=== PATIENT | male | born 1980 | race Caucasian/White ===

== ENCOUNTER → 2016-11-01 | Outpatient (CLI) | payer BC, OTHER ==
[2016-11-01 19:02] LABS: VITAMIN B12 LEVEL 328 PG/ML (247-911)
[2016-11-01 19:19] LABS: ALBUMIN 3.9 GM/DL (3.2-5.2); ALBUMIN/GLOBULIN RATIO 1.34 (1.00-1.93); ALKALINE PHOSPHATASE 88 U/L (45-117); ALT/SGPT 21 U/L (12-78); ANION GAP 5 MEQ/L (8-16); AST/SGOT 10 U/L (15-37); BILIRUBIN,TOTAL 1.2 MG/DL (0.2-1.0); BLOOD UREA NITROGEN 15 MG/DL (7-18); CARBON DIOXIDE LEVEL 31 MEQ/L (21-32); CHLORIDE LEVEL 104 MEQ/L (98-107); CHOLESTEROL LEVEL 166 MG/DL (<200); CREATININE FOR GFR 1.12 MG/DL (0.70-1.30); GLOMERULAR FILTRATION RATE > 60.0 (>60); GLUCOSE, FASTING 91 MG/DL (70-105); POTASSIUM SERUM 4.7 MEQ/L (3.5-5.1); SODIUM LEVEL 140 MEQ/L (136-145); TOTAL PROTEIN 6.8 GM/DL (6.4-8.2); TRIGLYCERIDES LEVEL 129 MG/DL (<150)
== END ==
LOC: M WUC 13:44
PROVIDERS: ATTEND Family Medicine
DX: E78.5 Hyperlipidemia, unspecified (principal); F41.1 Generalized anxiety disorder

== ENCOUNTER → 2016-12-21 | Outpatient (CLI) | payer BC, OTHER ==
--- NOTE | 2016-12-21 12:10 | REP ---
Right TIB-fib series: Four views. History: Pain in the right knee. Basketball injury. Findings: Four views of the right TIB-fib demonstrate plantar and Achilles calcaneal spurring. There is some ankle joint spurring. Old fragmented spurring is seen at the anterior tibial apophysis, question prior Conroy-Schlatter's. There is no evidence of acute tibial fracture or periosteal reaction. Impression: Ankle spurring, heel spurring, and question old Conroy-Schlatter's. No acute bony abnormality. Signed by Rashaun Ryaa MD 12/21/2016 02:46 P
== END ==
LOC: M RAD 10:46
PROVIDERS: ATTEND Physician Assistant
DX: M25.561 Pain in right knee (principal)

== ENCOUNTER 2017-09-18 03:16 | Inpatient (IN) | payer BC, OTHER ==
[2017-09-18] MEDS: MORPHINE 4 MG/ML 1ML VIAL/SYRINGE (J2270) IV ×2 (03:59→04:19)
[2017-09-18] MEDS: ONDANSETRON 4MG/2ML VIAL (J2405) IV (04:00)
[2017-09-18] MEDS: NS 1,000 ML IV ×3 (04:01→07:47)
[2017-09-18 04:19] LABS: BASO % 0.3 % (0.0-1.0); EOS % 0.6 % (0.0-3.0); HEMATOCRIT 42.9 % (42.0-52.0); HEMOGLOBIN 14.5 g/dl (13.5-17.5); IMMATURE GRANULOCYTE % 0.2 % (0-3.0); LYMPH # 2.6 10^3/uL (1.5-4.5); LYMPH % 41.9 % (24.0-44.0); MEAN CORPUSCULAR HEMOGLOBIN 29.5 pg (27.0-33.0); MEAN CORPUSCULAR HGB CONC 33.8 g/dl (32.0-36.5); MEAN CORPUSCULAR VOLUME 87.4 fl (80.0-96.0); MONO # 0.4 10^3/uL (0.0-0.8); MONO % 5.6 % (0.0-5.0); NEUTROPHILS # 3.2 10^3/uL (1.8-7.7); NEUTROPHILS % 51.4 % (36.0-66.0); PLATELET COUNT, AUTOMATED 222 10^3/uL (150-450); RED BLOOD COUNT 4.91 10^6/uL (4.30-6.10); RED CELL DISTRIBUTION WIDTH 12.6 % (11.5-14.5); WHITE BLOOD COUNT 6.3 10^3/uL (4.0-10.0)
[2017-09-18 04:31] LABS: ALBUMIN 3.9 GM/DL (3.2-5.2); ALKALINE PHOSPHATASE 70 U/L (45-117); ALT/SGPT 16 U/L (12-78); ANION GAP 6 MEQ/L (8-16); AST/SGOT 10 U/L (7-37); BILIRUBIN,DIRECT 0.2 MG/DL (0.0-0.2); BILIRUBIN,TOTAL 0.9 MG/DL (0.2-1.0); BLOOD UREA NITROGEN 23 MG/DL (7-18); CALCIUM LEVEL 8.7 MG/DL (8.5-10.1); CARBON DIOXIDE LEVEL 29 MEQ/L (21-32); CHLORIDE LEVEL 106 MEQ/L (98-107); CREATININE FOR GFR 1.22 MG/DL (0.70-1.30); GLOMERULAR FILTRATION RATE > 60.0 (>60); GLUCOSE, FASTING 99 MG/DL (70-100); LIPASE 111 U/L (73-393); POTASSIUM SERUM 3.8 MEQ/L (3.5-5.1); SODIUM LEVEL 141 MEQ/L (136-145); TOTAL PROTEIN 6.9 GM/DL (6.4-8.2)
[2017-09-18 04:32] LABS: LACTIC ACID SEPSIS PROTOCOL 1.9 MMOL/L (0.4-2.0)
[2017-09-18] MEDS: GASTROGRAFIN SOLUTION 30ML (Q9963) PO ×10 (04:40→06:40)
[2017-09-18] MEDS: fentaNYL 100 MCG/2 ML INJECTION (J3010) IV ×4 (05:47→11:20)
[2017-09-18] MEDS ORDERED: ISOVUE-370 76% 100ML VIAL (Q9967) As Ordered (05:49)
[2017-09-18] MEDS: PIPERACILLIN/TAZOBACTAM SOD 3.375 GM in D5W MINI-BAG PLUS 50 ML IV ×4 (06:39→23:44)
[2017-09-18] MEDS: LR 1,000 ML IV ×4 (07:39→18:54)
[2017-09-18] MEDS ORDERED: MORPHINE 4 MG/ML 1ML VIAL/SYRINGE (J2270) IV (07:45)
[2017-09-18] MEDS ORDERED: PANTOPRAZOLE 40MG INJ (PROTONIX) (C9113) IV (09:00)
[2017-09-18] MEDS ORDERED: GLYCOPYRROLATE INJ 0.2 MG/ML 2 ML VIAL As Ordered (14:06)
[2017-09-18] MEDS ORDERED: ROCURONIUM BROMIDE 50 MG/5 ML VIAL As Ordered ×2 (14:06→14:09)
[2017-09-18] MEDS ORDERED: METOCLOPRAMIDE INJ 10MG/2ML VIAL (J2765) As Ordered (14:06)
[2017-09-18] MEDS ORDERED: dexameTHASONE 4 MG/ML 1ML VIAL (J1100) As Ordered (14:06)
[2017-09-18] MEDS ORDERED: fentaNYL 250 MCG/5 ML INJECTION (J3010) As Ordered (14:06)
[2017-09-18] MEDS ORDERED: PROPOFOL 200 MG/20 ML VIAL As Ordered (14:06)
[2017-09-18] MEDS ORDERED: MIDAZOLAM INJ 2 MG/2 ML VIAL (J2250) As Ordered (14:06)
[2017-09-18] MEDS ORDERED: PHENYLEPHRINE INJ 10MG/ML VIAL (J2370) As Ordered (14:06)
[2017-09-18] MEDS ORDERED: ONDANSETRON 4MG/2ML VIAL (J2405) As Ordered (14:06)
[2017-09-18] MEDS ORDERED: NEOSTIGMINE 10 MG/10 ML VIAL (J2710) As Ordered (14:06)
[2017-09-18] MEDS ORDERED: LIDOCAINE 2% INJ 100 MG/5 ML SDV (FOR ANES.) As Ordered (14:06)
[2017-09-18] MEDS ORDERED: PHENYLephrine HCL 500 MCG/5 ML (100MCG/ML) SYRINGE (J2370) As Ordered (14:07)
[2017-09-18] MEDS: BUPIVACAINE HCL 0.25% 30 ML VIAL As Ordered (16:03)
[2017-09-18] MEDS ORDERED: PERCOCET 5MG/325MG TAB PO (16:45)
[2017-09-18] MEDS ORDERED: fentaNYL 100 MCG/2 ML INJECTION (J3010) IV (16:45)
[2017-09-18] MEDS ORDERED: ONDANSETRON 4MG/2ML VIAL (J2405) IV (16:45)
[2017-09-18] MEDS: PANTOPRAZOLE 40MG INJ (PROTONIX) (C9113) IV (20:23)
[2017-09-18] MEDS: KETOROLAC 30 MG/ML VIAL (J1885) IV (20:23)
[2017-09-18] MEDS: ACETAMINOPHEN TAB 650MG DOSE (2X325MG) PO (21:55)
[2017-09-19] MEDS: LR 1,000 ML IV ×3 (05:05→22:47)
[2017-09-19] MEDS: PIPERACILLIN/TAZOBACTAM SOD 3.375 GM in D5W MINI-BAG PLUS 50 ML IV ×3 (05:39→17:56)
[2017-09-19] MEDS: KETOROLAC 30 MG/ML VIAL (J1885) IV ×3 (05:39→17:56)
[2017-09-19 06:34] LABS: BASO % 0.1 % (0.0-1.0); HEMATOCRIT 34.5 % (42.0-52.0); IMMATURE GRANULOCYTE % 0.5 % (0-3.0); LYMPH # 0.7 10^3/uL (1.5-4.5); MEAN CORPUSCULAR HEMOGLOBIN 29.9 pg (27.0-33.0); MEAN CORPUSCULAR HGB CONC 33.9 g/dl (32.0-36.5); MEAN CORPUSCULAR VOLUME 88.2 fl (80.0-96.0); MONO # 0.5 10^3/uL (0.0-0.8); MONO % 6.6 % (0.0-5.0); NEUTROPHILS # 6.8 10^3/uL (1.8-7.7); NEUTROPHILS % 83.8 % (36.0-66.0); PLATELET COUNT, AUTOMATED 158 10^3/uL (150-450); RED BLOOD COUNT 3.91 10^6/uL (4.30-6.10); RED CELL DISTRIBUTION WIDTH 13.2 % (11.5-14.5); WHITE BLOOD COUNT 8.1 10^3/uL (4.0-10.0)
[2017-09-19 07:14] LABS: HEMOGLOBIN 11.7 g/dl (13.5-17.5)
[2017-09-19 07:19] LABS: ALBUMIN 2.6 GM/DL (3.2-5.2); ALKALINE PHOSPHATASE 41 U/L (45-117); ALT/SGPT 15 U/L (12-78); ANION GAP 4 MEQ/L (8-16); AST/SGOT 12 U/L (7-37); BILIRUBIN,TOTAL 1.7 MG/DL (0.2-1.0); BLOOD UREA NITROGEN 20 MG/DL (7-18); CALCIUM LEVEL 8.5 MG/DL (8.5-10.1); CARBON DIOXIDE LEVEL 30 MEQ/L (21-32); CHLORIDE LEVEL 108 MEQ/L (98-107); CREATININE FOR GFR 1.26 MG/DL (0.70-1.30); GLOMERULAR FILTRATION RATE > 60.0 (>60); GLUCOSE, FASTING 108 MG/DL (70-100); POTASSIUM SERUM 4.3 MEQ/L (3.5-5.1); SODIUM LEVEL 142 MEQ/L (136-145); TOTAL PROTEIN 5.5 GM/DL (6.4-8.2)
[2017-09-19] MEDS: PANTOPRAZOLE 40MG INJ (PROTONIX) (C9113) IV ×2 (08:08→20:23)
[2017-09-19] MEDS: ACETAMINOPHEN TAB 650MG DOSE (2X325MG) PO ×2 (08:15→20:23)
[2017-09-19] MEDS: SUCRALFATE SUSP 1GM/10ML UD PO ×2 (11:54→17:56)
[2017-09-19] MEDS: ENOXAPARIN 40 MG/0.4 ML SYRINGE (J1650) SC (11:55)
[2017-09-20] MEDS: SUCRALFATE SUSP 1GM/10ML UD PO ×4 (00:06→17:33)
[2017-09-20] MEDS: PIPERACILLIN/TAZOBACTAM SOD 3.375 GM in D5W MINI-BAG PLUS 50 ML IV ×4 (00:06→17:33)
[2017-09-20] MEDS: KETOROLAC 30 MG/ML VIAL (J1885) IV ×4 (00:07→21:21)
[2017-09-20] MEDS: PANTOPRAZOLE 40MG INJ (PROTONIX) (C9113) IV ×2 (09:08→20:18)
[2017-09-20] MEDS: ENOXAPARIN 40 MG/0.4 ML SYRINGE (J1650) SC (09:08)
[2017-09-20] MEDS: LR 1,000 ML IV (09:43)
[2017-09-20] MEDS: ACETAMINOPHEN TAB 650MG DOSE (2X325MG) PO ×2 (10:35→21:22)
[2017-09-21] MEDS: PIPERACILLIN/TAZOBACTAM SOD 3.375 GM in D5W MINI-BAG PLUS 50 ML IV ×5 (00:21→23:37)
[2017-09-21] MEDS: SUCRALFATE SUSP 1GM/10ML UD PO ×5 (00:21→23:37)
[2017-09-21] MEDS: ACETAMINOPHEN TAB 650MG DOSE (2X325MG) PO ×2 (05:28→15:28)
[2017-09-21] MEDS: PANTOPRAZOLE 40MG INJ (PROTONIX) (C9113) IV ×2 (08:32→20:38)
[2017-09-21] MEDS: LR 1,000 ML IV ×3 (08:33→18:05)
[2017-09-21] MEDS: ENOXAPARIN 40 MG/0.4 ML SYRINGE (J1650) SC (08:33)
[2017-09-21 10:52] LABS: HEMATOCRIT 37.7 % (42.0-52.0); HEMOGLOBIN 12.5 g/dl (13.5-17.5); MEAN CORPUSCULAR HEMOGLOBIN 29.1 pg (27.0-33.0); MEAN CORPUSCULAR HGB CONC 33.2 g/dl (32.0-36.5); MEAN CORPUSCULAR VOLUME 87.9 fl (80.0-96.0); PLATELET COUNT, AUTOMATED 193 10^3/uL (150-450); RED BLOOD COUNT 4.29 10^6/uL (4.30-6.10); RED CELL DISTRIBUTION WIDTH 12.7 % (11.5-14.5); WHITE BLOOD COUNT 5.8 10^3/uL (4.0-10.0)
[2017-09-22] MEDS: PIPERACILLIN/TAZOBACTAM SOD 3.375 GM in D5W MINI-BAG PLUS 50 ML IV (05:23)
[2017-09-22] MEDS: SUCRALFATE SUSP 1GM/10ML UD PO (05:24)
[2017-09-22 07:18] LABS: HEMATOCRIT 33.8 % (42.0-52.0); HEMOGLOBIN 11.6 g/dl (13.5-17.5); MEAN CORPUSCULAR HEMOGLOBIN 29.6 pg (27.0-33.0); MEAN CORPUSCULAR HGB CONC 34.3 g/dl (32.0-36.5); MEAN CORPUSCULAR VOLUME 86.2 fl (80.0-96.0); PLATELET COUNT, AUTOMATED 183 10^3/uL (150-450); RED BLOOD COUNT 3.92 10^6/uL (4.30-6.10); RED CELL DISTRIBUTION WIDTH 12.7 % (11.5-14.5); WHITE BLOOD COUNT 4.4 10^3/uL (4.0-10.0)
[2017-09-22] MEDS: PANTOPRAZOLE 40MG INJ (PROTONIX) (C9113) IV (09:00)
[2017-09-22] MEDS ORDERED: SUCRALFATE SUSP 1GM/10ML UD PO (12:00)
== END 2017-09-22 10:25 | disposition home or self-care (01) | DRG 223 ==
LOC: M PED 09-20 21:09 → M ED 03:16 → M ED INP 07:39 → M MS5PR 17:25
PROC: 0DUA4JZ Supplement Jejunum with Synthetic Substitute, Percutaneous Endoscopic Approach (ICD-10-PCS; principal; 2017-09-18 06:37)
DX: K28.5 Chronic or unspecified gastrojejunal ulcer with perforation (principal); M10.9 Gout, unspecified; F41.9 Anxiety disorder, unspecified

== ENCOUNTER → 2017-11-10 | Outpatient (CLI) | payer OTHER, BC ==
[2017-11-10 13:58] LABS: BASO % 0.5 % (0.0-1.0); EOS % 0.8 % (0.0-3.0); HEMATOCRIT 40.1 % (42.0-52.0); HEMOGLOBIN 13.4 g/dl (13.5-17.5); IMMATURE GRANULOCYTE % 0.3 % (0-3.0); LYMPH # 1.1 10^3/uL (1.5-4.5); LYMPH % 28.7 % (24.0-44.0); MEAN CORPUSCULAR HEMOGLOBIN 29.2 pg (27.0-33.0); MEAN CORPUSCULAR HGB CONC 33.4 g/dl (32.0-36.5); MEAN CORPUSCULAR VOLUME 87.4 fl (80.0-96.0); MONO # 0.3 10^3/uL (0.0-0.8); MONO % 8.9 % (0.0-5.0); NEUTROPHILS # 2.2 10^3/uL (1.8-7.7); NEUTROPHILS % 60.8 % (36.0-66.0); PLATELET COUNT, AUTOMATED 193 10^3/uL (150-450); RED BLOOD COUNT 4.59 10^6/uL (4.30-6.10); RED CELL DISTRIBUTION WIDTH 13.2 % (11.5-14.5); WHITE BLOOD COUNT 3.7 10^3/uL (4.0-10.0)
[2017-11-10 14:18] LABS: ALBUMIN/GLOBULIN RATIO 1.29 (1.00-1.93); ALKALINE PHOSPHATASE 72 U/L (45-117); ALT/SGPT 16 U/L (12-78); ANION GAP 7 MEQ/L (8-16); AST/SGOT 14 U/L (7-37); BILIRUBIN,TOTAL 1.6 MG/DL (0.2-1.0); BLOOD UREA NITROGEN 14 MG/DL (7-18); CALCIUM LEVEL 9.2 MG/DL (8.5-10.1); CARBON DIOXIDE LEVEL 30 MEQ/L (21-32); CHLORIDE LEVEL 105 MEQ/L (98-107); CREATININE FOR GFR 1.09 MG/DL (0.70-1.30); FREE T4 1.11 NG/DL (0.76-1.46); GLOMERULAR FILTRATION RATE > 60.0 (>60); GLUCOSE, FASTING 97 MG/DL (70-100); POTASSIUM SERUM 4.4 MEQ/L (3.5-5.1); SODIUM LEVEL 142 MEQ/L (136-145); TOTAL PROTEIN 7.1 GM/DL (6.4-8.2); URIC ACID 9.5 MG/DL (3.5-7.2)
[2017-11-10 14:27] LABS: TOTAL 25(OH) VITAMIN D 25.5 NG/ML (30.0-100.0); VITAMIN B12 LEVEL 240 PG/ML
== END ==
LOC: M WUC 09:48
DX: R53.83 Other fatigue (principal); M10.00 Idiopathic gout, unspecified site
CPT/HCPCS: 82746

== ENCOUNTER 2017-11-18 12:45 | Day surgery (SDC) | payer BC, OTHER ==
[2017-11-18] MEDS: NS 1,000 ML IV (13:00)
[2017-11-18] MEDS ORDERED: fentaNYL 100 MCG/2 ML INJECTION (J3010) As Ordered (14:38)
[2017-11-18] MEDS ORDERED: PROPOFOL 200 MG/20 ML VIAL As Ordered ×2 (14:46→14:52)
[2017-11-18] MEDS ORDERED: LIDOCAINE 2% INJ 100 MG/5 ML SDV (FOR ANES.) As Ordered (14:46)
== END 2017-11-18 15:29 | disposition home or self-care (01) ==
LOC: M SDC 12:45
DX: K63.1 Perforation of intestine (nontraumatic) (principal); Z98.84 Bariatric surgery status; Z88.2 Allergy status to sulfonamides; Z98.890 Other specified postprocedural states; K21.9 Gastro-esophageal reflux disease without esophagitis; M10.9 Gout, unspecified; Z87.891 Personal history of nicotine dependence; F41.9 Anxiety disorder, unspecified
CPT/HCPCS: 43235

== ENCOUNTER → 2019-11-17 | Outpatient (CLI) | payer BC, OTHER ==
[~2019-11-17] MED LIST: CELE20TA PO; PRED10TA2; PRED10TA2 PO; PROT1TAB2 PO; SUCR1ORA2 PO; TRAM50TA2; TRAM50TA2 PO; ZYLO300T6 PO
[2019-11-17 14:27] LABS: BASO % 0.6 % (0.0-1.0); EOS # 0.2 10^3/uL (0.0-0.5); EOS % 3.3 % (0.0-3.0); HEMATOCRIT 43.1 % (42.0-52.0); LYMPH # 1.1 10^3/uL (1.5-5.0); LYMPH % 20.8 % (24.0-44.0); MEAN CORPUSCULAR HEMOGLOBIN 27.9 pg (27.0-33.0); MEAN CORPUSCULAR HGB CONC 32.5 g/dl (32.0-36.5); MEAN CORPUSCULAR VOLUME 85.9 fl (80.0-96.0); MONO # 0.4 10^3/uL (0.0-0.8); NEUTROPHILS # 3.7 10^3/uL (1.5-8.5); NEUTROPHILS % 68.1 % (36.0-66.0); PLATELET COUNT, AUTOMATED 229 10^3/uL (150-450); RED BLOOD COUNT 5.02 10^6/uL (4.30-6.10); WHITE BLOOD COUNT 5.4 10^3/uL (4.0-10.0)
[2019-11-17 14:40] LABS: ALT/SGPT 16 U/L (12-78); BILIRUBIN,TOTAL 1.5 MG/DL (0.2-1.0); BLOOD UREA NITROGEN 15 MG/DL (7-18); CALCIUM LEVEL 9.7 MG/DL (8.5-10.1); CARBON DIOXIDE LEVEL 27 MEQ/L (21-32); CHLORIDE LEVEL 108 MEQ/L (98-107); CHOLESTEROL LEVEL 191 MG/DL (<200); CHOLESTEROL RISK RATIO 2.329 (<5); CREATININE FOR GFR 1.28 MG/DL (0.70-1.30); FREE T4 1.02 NG/DL (0.76-1.46); GLOMERULAR FILTRATION RATE > 60.0 (>60); GLUCOSE, FASTING 112 MG/DL (70-100); HDL CHOLESTEROL 82 MG/DL (>40); LDL CHOLESTEROL 95 MG/DL (<100); NON-HDL-C 109 MG/DL; POTASSIUM SERUM 4.5 MEQ/L (3.5-5.1); SODIUM LEVEL 142 MEQ/L (136-145); TOTAL PROTEIN 7.3 GM/DL (6.4-8.2); TRIGLYCERIDES LEVEL 69 MG/DL (<150); URIC ACID 5.2 MG/DL (3.5-7.2)
[2019-11-17 14:42] LABS: TOTAL 25(OH) VITAMIN D 27.1 NG/ML (30.0-100.0)
[2019-11-17 15:54] LABS: HEMOGLOBIN A1c 5.6 %
== END ==
LOC: M WUC 09:39
PROVIDERS: ATTEND Physician Assistant
DX: Z13.220 Encounter for screening for lipoid disorders (principal); Z13.29 Encounter for screening for other suspected endocrine disorder
CPT/HCPCS: 36415; 80053; 80061; 82306; 83036; 84439; 84443; 84550; 85025; G0103

== ENCOUNTER 2019-12-19 13:13 | Emergency (ER) | payer BC, OTHER ==
[2019-12-19] MEDS ORDERED: GI COCKTAIL 50ML BTL(HYOSCYAMINE/MAALOX/LIDOCAINE VISCOUS)(1:3:1) As Ordered ONE (13:43)
[2019-12-19] MEDS ORDERED: ASPIRIN 81 MG CHEW TABLET As Ordered ONE (13:43)
[2019-12-19] MEDS ORDERED: GI COCKTAIL 50ML BTL(HYOSCYAMINE/MAALOX/LIDOCAINE VISCOUS)(1:3:1) ONE (13:43)
[2019-12-19] MEDS ORDERED: ASPIRIN 81 MG CHEW TABLET ONE (13:43)
--- NOTE | 2020-01-14 12:26 | ECGEPIP ---
[facility] - ED Test Date: 2019-12-19 Pat Name: ESMER CORONEL Department: Room: - Gender: Male [employer]: [place] : 1980 Requested By: KIERAN AREVALO Order Number: [id number] Reading MD: Marlen Lopez Measurements Intervals [place] Rate: 52 P: 7 WV: 128 QRS: 54 QRSD: 110 T: 48 QT: 442 QTc: 414 Interpretive Statements SINUS BRADYCARDIA WITH SINUS ARRHYTHMIA BORDERLINE ECG SEE SCANNED DOWNTIME REPORT
--- NOTE | 2020-01-21 15:23 | ECGEPIP ---
SINUS RHYTHM NORMAL ECG NO PRIOR DUE TO DOWNTIME SEE SCANNED DOWNTIME REPORT MTDD
[2020-01-31 10:50] LABS: INR 0.96
[2020-01-31 22:32] LABS: HEMATOCRIT 37.6 % (42.0-52.0); HEMOGLOBIN 12.4 g/dl (13.5-17.5); MEAN CORPUSCULAR HEMOGLOBIN 27.8 pg (27.0-33.0); MEAN CORPUSCULAR VOLUME 84.3 fl (80.0-96.0); PLATELET COUNT, AUTOMATED 210 10^3/uL (150-450); RED BLOOD COUNT 4.46 10^6/uL (4.30-6.10); WHITE BLOOD COUNT 4.2 10^3/uL (4.0-10.0)
[2020-03-05 11:20] LABS: CK-MB VALUE MASS < 1.0 NG/ML (<3.6); CPK CREATINE PHOSPHOKINASE 76 U/L (39-308); MB/CK RELATIVE INDEX 1.32 (< OR =4); TROPONIN I < 0.02 NG/ML (< 0.10)
[2020-03-05 11:20] LABS: BLOOD UREA NITROGEN 13 MG/DL (7-18); CALCIUM LEVEL 8.9 MG/DL (8.5-10.1); CARBON DIOXIDE LEVEL 26 MEQ/L (21-32); CHLORIDE LEVEL 111 MEQ/L (98-107); CK-MB VALUE MASS < 1.0 NG/ML (<3.6); CPK CREATINE PHOSPHOKINASE 61 U/L (39-308); CREATININE FOR GFR 1.26 MG/DL (0.70-1.30); GLOMERULAR FILTRATION RATE > 60.0 (>60); GLUCOSE, FASTING 106 MG/DL (70-100); MB/CK RELATIVE INDEX 1.64 (< OR =4); POTASSIUM SERUM 3.7 MEQ/L (3.5-5.1); SODIUM LEVEL 142 MEQ/L (136-145); TROPONIN I < 0.02 NG/ML (< 0.10)
== END 2019-12-19 18:10 | disposition home or self-care (01) ==
LOC: M ED 13:13
DX: R07.89 Other chest pain (principal); Z82.49 Family history of ischemic heart disease and other diseases of the circulatory system; Z88.2 Allergy status to sulfonamides

== ENCOUNTER → 2019-12-24 | Outpatient (CLI) | payer BC, OTHER ==
[2019-12-25 14:53] LABS: Lyme Disease IgG/IgM Antibodie <0.91 ISR (0.00-0.90); Lyme Disease IgM Ab Quantitati <0.80 index (0.00-0.79)
== END ==
LOC: M WUC 09:35
PROVIDERS: ATTEND Physician Assistant
DX: R53.83 Other fatigue (principal)

== ENCOUNTER → 2020-11-22 | Outpatient (CLI) | payer OTHER, BC ==
[2020-11-22 13:56] LABS: BASO % 0.5 % (0.0-1.0); EOS # 0.1 10^3/uL (0.0-0.5); EOS % 2.1 % (0.0-3.0); HEMATOCRIT 37.9 % (42.0-52.0); HEMOGLOBIN 12.1 g/dl (13.5-17.5); LYMPH # 1.4 10^3/uL (1.5-5.0); LYMPH % 33.3 % (24.0-44.0); MEAN CORPUSCULAR HEMOGLOBIN 26.9 pg (27.0-33.0); MEAN CORPUSCULAR HGB CONC 31.9 g/dl (32.0-36.5); MEAN CORPUSCULAR VOLUME 84.4 fl (80.0-96.0); MONO # 0.4 10^3/uL (0.0-0.8); MONO % 9.6 % (2.0-8.0); NEUTROPHILS # 2.3 10^3/uL (1.5-8.5); NEUTROPHILS % 54.3 % (36.0-66.0); PLATELET COUNT, AUTOMATED 182 10^3/uL (150-450); RED BLOOD COUNT 4.49 10^6/uL (4.30-6.10); WHITE BLOOD COUNT 4.3 10^3/uL (4.0-10.0)
[2020-11-22 14:38] LABS: ALBUMIN 3.9 GM/DL (3.2-5.2); ALT/SGPT 22 U/L (12-78); BLOOD UREA NITROGEN 10 MG/DL (7-18); CALCIUM LEVEL 8.8 MG/DL (8.5-10.1); CARBON DIOXIDE LEVEL 31 MEQ/L (21-32); CHLORIDE LEVEL 105 MEQ/L (98-107); CPK CREATINE PHOSPHOKINASE 248 U/L (39-308); CREATININE FOR GFR 1.15 MG/DL (0.70-1.30); GLOMERULAR FILTRATION RATE > 60.0 (>60); GLUCOSE, FASTING 80 MG/DL (70-100); POTASSIUM SERUM 4.1 MEQ/L (3.5-5.1); SODIUM LEVEL 140 MEQ/L (136-145); TOTAL PROTEIN 6.6 GM/DL (6.4-8.2)
[2020-11-22 17:02] LABS: ERYTHROCYTE SEDIMENTATION RATE 6 mm/hr (0-15)
[2020-11-23 20:08] LABS: ANA (HEP2) Negative (.)
== END ==
LOC: M WUC 09:55
PROVIDERS: ATTEND Physician Assistant
DX: M79.10 Myalgia, unspecified site (principal)

== ENCOUNTER → 2021-01-14 | Outpatient (CLI) | payer BC, OTHER ==
--- NOTE | 2021-01-14 12:22 | REPVR ---
PROCEDURE INFORMATION: Exam: MR Lumbar Spine Without Contrast Exam date and time: 01/14/2021 9:29 AM Age: 40 years old Clinical indication: Low back pain; Additional info: Lbp, sciatica TECHNIQUE: Imaging protocol: Multiplanar magnetic resonance images of the lumbar spine without intravenous contrast. COMPARISON: CT ABD/PEL W/IV ORAL CONTRAS 09/18/2017 5:57 AM FINDINGS: Vertebrae: Evaluation of the marrow demonstrates no evidence of acute fracture line, high-grade compression deformity, worrisome malalignment, or marrow edema. No significant Modic type changes. Mild posterior element hypertrophic changes at multiple levels. Benign marrow signal the T1 weighted images. Limited retrolisthesis of L5 on S1 is likely degenerative. No definite spondylolysis. Spinal epidural space: No evidence of arachnoiditis or epidural fluid. Spinal cord: The conus terminates at L1 without abnormal cord signal. L1-L2: At L1-L2, I see no significant disc abnormality. Partially visualized in the left foramina is a T2 hyperintensity measuring at least 7 mm which may represent a facet cyst or dilated nerve root sleeve. This mildly encroaches upon the left-sided foramina. L2-L3: At L2-L3, there is no significant disc abnormality. 5 mm facet cyst or dilated nerve root sleeve with mild foraminal encroachment on the right. L3-L4: At L3-L4, there is mild broad-based bulging of the disc approaching but not definitively contacting the traversing L4 nerve roots. Mild bilateral foraminal encroachment with minimal central stenosis. L4-L5: At L4-L5, I see no significant abnormality. L5-S1: At L5-S1, mild broad bulging of the disc approaching but not definitively contacting the traversing S1 nerve roots. Mild bilateral foraminal encroachment without significant central stenosis. Sacrum/coccyx: Symmetric SI joints. Soft tissues: No paraspinal mass or hematoma. Disc desiccation at L3-L4 and L5-S1 with disc space loss most pronounced at L3-L4. IMPRESSION: Degenerative changes and disc abnormalities with limited mass effect at L3-L4 and L5-S1. Electronically signed by: Bruce Perkins On 01/14/2021 12:21:49 PM
== END ==
LOC: M RAD 08:37
PROVIDERS: ATTEND Physician Assistant
DX: M54.42 Lumbago with sciatica, left side (principal); M51.36 Other intervertebral disc degeneration, lumbar region; M51.37 Other intervertebral disc degeneration, lumbosacral region

== ENCOUNTER → 2021-03-27 | Outpatient (REF) | payer BC, OTHER | LOC: M LAB REF 19:12 | PROVIDERS: ATTEND Family Medicine | DX: J06.9 Acute upper respiratory infection, unspecified (principal) ==

== ENCOUNTER → 2021-06-07 | Outpatient (CLI) | payer BC, OTHER | LOC: M PAIN 08:30 | PROVIDERS: ATTEND Anesthesiology | DX: M51.17 Intervertebral disc disorders with radiculopathy, lumbosacral region (principal); E66.01 Morbid (severe) obesity due to excess calories; K21.9 Gastro-esophageal reflux disease without esophagitis; F41.9 Anxiety disorder, unspecified; G47.30 Sleep apnea, unspecified; M10.9 Gout, unspecified; Z98.84 Bariatric surgery status; Z79.891 Long term (current) use of opiate analgesic; Z79.899 Other long term (current) drug therapy; F17.220 Nicotine dependence, chewing tobacco, uncomplicated; Z88.6 Allergy status to analgesic agent; Z88.2 Allergy status to sulfonamides ==

== ENCOUNTER → 2022-08-20 | Outpatient (CLI) | payer BC, OTHER ==
[~2022-08-20] MED LIST changes: +TRAM1CAP15 PO; +VITMTA PO; +[UNRECOGNIZED DRUG - OTHER]; +[UNRECOGNIZED DRUG - OTHER] PO
[2022-08-20 14:36] LABS: BASO % 0.9 % (0.0-1.0); EOS # 0.1 10^3/uL (0.0-0.5); EOS % 1.7 % (0.0-3.0); HEMATOCRIT 37.4 % (42.0-52.0); HEMOGLOBIN 11.7 g/dl (13.5-17.5); LYMPH # 1.3 10^3/uL (1.5-5.0); LYMPH % 35.6 % (24.0-44.0); MEAN CORPUSCULAR HEMOGLOBIN 26.2 pg (27.0-33.0); MEAN CORPUSCULAR HGB CONC 31.3 g/dl (32.0-36.5); MEAN CORPUSCULAR VOLUME 83.7 fl (80.0-96.0); MONO # 0.3 10^3/uL (0.0-0.8); NEUTROPHILS # 1.9 10^3/uL (1.5-8.5); NEUTROPHILS % 53.5 % (36.0-66.0); PLATELET COUNT, AUTOMATED 201 10^3/uL (150-450); RED BLOOD COUNT 4.47 10^6/uL (4.30-6.10); WHITE BLOOD COUNT 3.5 10^3/uL (4.0-10.0)
[2022-08-20 15:10] LABS: IRON (FE) 30 UG/DL (65-175); URIC ACID 5.6 MG/DL (3.7-9.2)
[2022-08-20 15:13] LABS: PERCENT SATURATION 7.4 % (19.7-50.0); TOTAL IRON BINDING CAPACITY 406 UG/DL (250-425)
[2022-08-20 15:14] LABS: ALKALINE PHOSPHATASE 97 U/L (46-116); ALT/SGPT 15 U/L (7.0-40); AST/SGOT 17 U/L (<34); BILIRUBIN,TOTAL 1.2 MG/DL (0.3-1.2); BLOOD UREA NITROGEN 15 MG/DL (9-23); CALCIUM LEVEL 9.2 MG/DL (8.5-10.1); CARBON DIOXIDE LEVEL 30 MMOL/L (20-31); CHLORIDE LEVEL 105 MMOL/L (98-107); CHOLESTEROL LEVEL 153 MG/DL (<200); CHOLESTEROL RISK RATIO 2.04 (<5); CREATININE FOR GFR 1.02 MG/DL (0.70-1.30); FERRITIN 3.7 NG/ML (10.5-307.3); FOLATE 18.11 NG/ML (>5.4); FREE T4 0.92 NG/DL (0.89-1.76); GLOMERULAR FILTRATION RATE > 60.0 (>60); GLUCOSE, FASTING 96 MG/DL (60-100); HDL CHOLESTEROL 74.9 MG/DL (>40); LDL CHOLESTEROL 64.5 MG/DL (<100); NON-HDL-C 78.1 MG/DL; POTASSIUM SERUM 4.4 MMOL/L (3.5-5.1); SODIUM LEVEL 141 MMOL/L (136-145); THYROID STIMULATING HORMONE 1.922 uIU/ML (0.55-4.78); TOTAL 25(OH) VITAMIN D 39.3 NG/ML (20.0-100.0); TOTAL PROTEIN 6.6 G/DL (5.7-8.2); TRIGLYCERIDES LEVEL 68 MG/DL (<150); VITAMIN B12 LEVEL 367 PG/ML (211-911)
[2022-08-20 15:39] LABS: HEMOGLOBIN A1c 5.8 % (4.0-6.0)
== END ==
LOC: M WUC 09:34
PROVIDERS: ATTEND Physician Assistant
DX: Z98.84 Bariatric surgery status (principal); E55.9 Vitamin D deficiency, unspecified; M10.00 Idiopathic gout, unspecified site

== ENCOUNTER 2022-09-02 14:23 | Outpatient (CLI) | payer BC, OTHER ==
[~2022-09-02] VITALS: Ht 185.4 cm; Wt 93.2 kg
[2022-09-02 14:30] VITALS: BP 130/78
[2022-09-02] MEDS ORDERED: FERRIC CARBOXYMALTOSE INJ 750 MG in NS 250 ML (>50kg) IV ONE ×3 (14:30)
[2022-09-02] MEDS ORDERED: PREG50CA PO (15:01)
[2022-09-02] MEDS ORDERED: ADDE1TAB14 PO (15:01)
[2022-09-02 16:40] VITALS: BP 123/74
== END 2022-09-02 16:40 ==
LOC: M INFU 14:23
PROVIDERS: ATTEND Physician Assistant
DX: D50.9 Iron deficiency anemia, unspecified (principal); Z88.2 Allergy status to sulfonamides; Z88.6 Allergy status to analgesic agent
CPT/HCPCS: 96365; 96366; J1439

== ENCOUNTER 2022-09-11 09:00 | Outpatient (CLI) | payer BC, OTHER ==
[~2022-09-11] VITALS: Ht 185.4 cm; Wt 93.2 kg
[~2022-09-11 09:00] MED LIST changes: +ADDE1TAB14 PO; +PREG50CA PO
[2022-09-11 09:07] VITALS: BP 117/64
[2022-09-11] MEDS ORDERED: FERRIC CARBOXYMALTOSE INJ 750 MG in NS 250 ML (>50kg) IV ONE ×3 (09:30)
[2022-09-11 10:20] VITALS: BP 114/68
== END 2022-09-11 10:15 | disposition home or self-care (01) ==
LOC: M INFU 09:00
PROVIDERS: ATTEND Physician Assistant
DX: D64.9 Anemia, unspecified (principal); Z88.6 Allergy status to analgesic agent; Z88.2 Allergy status to sulfonamides
CPT/HCPCS: 96365; J1439

== ENCOUNTER → 2022-10-29 | Outpatient (CLI) | payer BC, OTHER ==
[2022-10-29 14:24] LABS: BASO % 0.8 % (0.0-1.0); EOS # 0.1 10^3/uL (0.0-0.5); HEMOGLOBIN 13.4 g/dl (13.5-17.5); LYMPH # 1.5 10^3/uL (1.5-5.0); LYMPH % 37.3 % (24.0-44.0); MEAN CORPUSCULAR HEMOGLOBIN 28.3 pg (27.0-33.0); MEAN CORPUSCULAR HGB CONC 31.9 g/dl (32.0-36.5); MEAN CORPUSCULAR VOLUME 88.6 fl (80.0-96.0); MONO # 0.3 10^3/uL (0.0-0.8); MONO % 6.8 % (2.0-8.0); NEUTROPHILS # 2.1 10^3/uL (1.5-8.5); NEUTROPHILS % 52.8 % (36.0-66.0); PLATELET COUNT, AUTOMATED 202 10^3/uL (150-450); RED BLOOD COUNT 4.74 10^6/uL (4.30-6.10)
[2022-10-29 14:58] LABS: PERCENT SATURATION 34.1 % (19.7-50.0)
[2022-10-29 14:59] LABS: FERRITIN 79.9 NG/ML (10.5-307.3)
[2022-10-29 15:00] LABS: FOLATE 15.12 NG/ML (>5.4)
== END ==
LOC: M WUC 08:55
PROVIDERS: ATTEND Physician Assistant
DX: D50.9 Iron deficiency anemia, unspecified (principal)

== ENCOUNTER 2024-01-15 07:38 | Day surgery (SDC) | payer BC ==
[~2024-01-15] VITALS: Ht 185.4 cm; Wt 98.6 kg
[~2024-01-15 07:38] MED LIST changes: +ADDE20CA3 PO; +ALLO100T PO; +AMPH1TAB2 PO; +NS 1,000 ML IV ONE; +PANT40TA29 PO; +VENL75CA2 PO
[2024-01-15] MEDS ORDERED: propofoL 200 MG/20 ML VIAL As Ordered ONE (08:24)
[2024-01-15 08:53] VITALS: TEMP 98
[2024-01-15 09:10] VITALS: BP 101/72; O2SAT 98
== END 2024-01-15 09:13 | disposition home or self-care (01) ==
LOC: M OPP 07:38
PROVIDERS: ATTEND Surgery
DX: Z12.11 Encounter for screening for malignant neoplasm of colon (principal); Z98.84 Bariatric surgery status; Z87.891 Personal history of nicotine dependence; Z79.891 Long term (current) use of opiate analgesic; Z79.899 Other long term (current) drug therapy; Z88.2 Allergy status to sulfonamides; Z88.6 Allergy status to analgesic agent; Z88.8 Allergy status to other drugs, medicaments and biological substances

== ENCOUNTER → 2025-03-16 | Outpatient (CLI) | payer BC ==
[~2025-03-16] MED LIST changes: -NS 1,000 ML IV ONE; -PREG50CA PO; +PREG50CA87 PO; -SUCR1ORA2 PO; +SUCR1ORA20 PO
[2025-03-16 12:22] LABS: ALT/SGPT 20.0 U/L (7.0-40); AST/SGOT 17.0 U/L (<34); BASO # 0.0 10^3/uL (0.0-0.2); BASO % 0.8 % (0.0-1.0); CALCIUM LEVEL 9.3 MG/DL (8.5-10.1); CARBON DIOXIDE LEVEL 31.0 MMOL/L (20-31); CHLORIDE LEVEL 102.0 MMOL/L (98-107); CREATININE FOR GFR 1.09 MG/DL (0.70-1.30); EOS # 0.0 10^3/uL (0.0-0.5); EOS % 1.0 % (0.0-3.0); GLOMERULAR FILTRATION RATE 84.8 (>60); IRON (FE) 121.0 UG/DL (65-175); LYMPH # 1.1 10^3/uL (1.5-5.0); LYMPH % 28.5 % (24.0-44.0); MAGNESIUM LEVEL 1.9 MG/DL (1.8-2.4); MONO # 0.3 10^3/uL (0.0-0.8); MONO % 8.3 % (2.0-8.0); NEUTROPHILS # 2.4 10^3/uL (1.5-8.5); NEUTROPHILS % 61.4 % (36.0-66.0); PLATELET COUNT, AUTOMATED 206 10^3/uL (150-450); POTASSIUM SERUM 4.6 MMOL/L (3.5-5.1); SODIUM LEVEL 140.0 MMOL/L (136-145)
[2025-03-16 12:23] LABS: PERCENT SATURATION 32.9 % (19.7-50.0); TOTAL 25(OH) VITAMIN D 26.7 NG/ML (20.0-100.0)
[2025-03-16 12:25] LABS: FREE T4 1.07 NG/DL (0.89-1.76); VITAMIN B12 LEVEL 520.0 PG/ML (211-911)
[2025-03-16 12:50] LABS: ESTIMATED AVERAGE GLUCOSE 120.0 MG/DL (60-110)
== END ==
LOC: M WUC 08:22
PROVIDERS: ATTEND Family Medicine
DX: Z98.84 Bariatric surgery status (principal)